=== PATIENT | male | born 1945 | race Caucasian/White ===

== ENCOUNTER 2018-05-30 15:45 | Emergency (ER) | payer MEDICARE, MEDICAID ==
[2018-05-30] MEDS ORDERED: Sodium Chloride 0.9% 1,000 ML IV ONE (16:24)
[2018-05-30] MEDS ORDERED: Ondansetron 4 MG/2 ML SDV IVPUSH ONE (16:24)
--- NOTE | 2018-05-30 16:32 | EDM.PDOC ---
ED HPI GENERAL MEDICAL PROBLEM - General Chief Complaint: Abdominal Pain Stated Complaint: VOMITING Time Seen by Provider: 05/30/18 16:24 Source of Information: Reports: Patient History Limitations: Reports: No Limitations - History of Present Illness INITIAL COMMENTS - FREE TEXT/NARRATIVE: This patient was strongly registered through the emergency room. I did not physically see this patient nor were they in the emergency room. - Related Data Allergies Allergy/AdvReac Type Severity Reaction Status Date / Time ampicillin Allergy Rash Verified 05/01/18 03:20 MDT codeine Allergy Cannot Verified 05/01/18 03:20 MDT Remember metronidazole [From Flagyl] Allergy Cannot Verified 05/01/18 03:20 MDT Remember propoxyphene Allergy Cannot Verified 05/01/18 03:20 MDT [From Darvocet-N] Remember Sulfa (Sulfonamide Allergy Rash Verified 05/01/18 03:20 MDT Antibiotics) sulfamethoxazole Allergy Cannot Verified 05/01/18 03:20 MDT [From Bactrim] Remember trimethoprim [From Bactrim] Allergy Cannot Verified 05/01/18 03:20 MDT Remember dust Allergy Cardiac Uncoded 05/01/18 03:20 MDT Arrest feibutol Allergy Cannot Uncoded 05/01/18 03:20 MDT Remember Home Meds: Home Meds Acetaminophen 650 tab PO DAILY PRN 01/30/16 [History] Albuterol [Ventolin HFA] 2 puff INH BID 01/30/16 [History] Ascorbic Acid [C-1000] 1,000 mg PO DAILY 01/30/16 [History] Cholecalciferol (Vitamin D3) [Vitamin D3] 2,000 unit PO DAILY 01/30/16 [History] Docusate Sodium [Colace] 100 mg PO BID PRN 01/30/16 [History] Furosemide 80 mg PO BID 01/30/16 [History] Gabapentin [Neurontin] 300 mg PO BID 01/30/16 [History] Hydrocodone/Acetaminophen [Reno 5-325] 1 tab PO Q6H PRN 01/30/16 [History] Levothyroxine 112 mcg PO DAILY 01/30/16 [History] Lutein 20 mg PO DAILY 01/30/16 [History] Montelukast [Singulair] 10 mg PO BEDTIME 01/30/16 [History] Polyethylene Glycol 3350 [MiraLAX] 1 packet PO DAILY 01/30/16 [History] Potassium Chloride 40 tab PO TID 01/30/16 [History] Simvastatin [Zocor] 20 mg PO BEDTIME 01/30/16 [History] Venlafaxine [Effexor XR] 225 mg PO DAILY 01/30/16 [History] metFORMIN [Glucophage] 500 mg PO BID 01/30/16 [History] Fluticasone Propionate [Flonase] 1 spray NASBOTH BEDTIME 01/31/16 [History] Benzocaine [Orabase-B 20% Dental Paste] 1 mg MUCMEM QID PRN 07/16/17 [History] Liraglutide [Victoza 3-Marco A] 1.2 mg SQ BEDTIME 07/16/17 [History] Lisinopril 10 mg PO DAILY 07/16/17 [History] Melatonin 4 mg PO BEDTIME 07/16/17 [History] Saliva Substitution Combo No.9 [Biotene] 3 ml PO QID PRN 07/16/17 [History] Spironolactone [Aldactone] 12.5 mg PO DAILY 07/16/17 [History] Albuterol [Ventolin HFA] 2 puff INH QID PRN 05/01/18 [History] Aspirin 81 mg PO DAILY 05/01/18 [History] Carboxymethylcellulose Sodium [Refresh Tears] 1 drop EYEBOTH BID PRN 05/01/18 [ History] Cyanocobalamin (Vitamin B-12) [B-12] 1,000 mcg PO DAILY 05/01/18 [History] Vit with Ca/FA/Iron [ Plus Iron] 1 tab PO DAILY 05/01/18 [ History] Warfarin Sodium [Coumadin] 7.5 mg PO SUTUWETHSA 05/01/18 [History] Warfarin [Coumadin] 10 mg PO MOFR 05/01/18 [History] Past Medical History HEENT History: Reports: Hard of Hearing Other HEENT History: acoustic neuroma Cardiovascular History: Reports: Heart Failure, High Cholesterol, Hypertension Other Cardiovascular History: lower extremity edema Respiratory History: Reports: Asthma, Sleep Apnea Other Respiratory History: dypsnea, orthopnea, wheezing, chronic cough Gastrointestinal History: Reports: Chronic Constipation, Colon Polyp Other Gastrointestinal History: colon polyps Genitourinary History: Reports: Chronic Renal Insuffiency Other Genitourinary History: Hx of CKD [employer] History: Reports: Other [employer] History: breast cancer, lumpectomy, ovarian cystectomy Musculoskeletal History: Reports: Back Pain, Chronic (Spinal stenosis) Other Musculoskeletal History: muscle weakness, spinal stenosis Neurological History: Reports: CVA, Seizure Other Neuro History: stroke intra operatively, 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, acoustic neuroma, brain surgery x 2 Psychiatric History: Reports: Anxiety, Depression, Other (See Below) (Insomnia) Other Psychiatric History: insomnia Endocrine/Metabolic History: Reports: Diabetes, Type II, Hypothyroidism, Obesity /BMI 30+ Hematologic History: Reports: Anemia Oncologic (Cancer) History: Reports: Breast - Infectious Disease History Infectious Disease History: Reports: MRSA - Past Surgical History Head Surgeries/Procedures: Reports: Craniotomy HEENT Surgical History: Reports: Cataract Surgery, Tonsillectomy, Other (See Below) (Excision of acoustic neuroma) GI Surgical History: Reports: Appendectomy, Cholecystectomy Female Surgical History: Reports: Cystectomy Neurological Surgical History: Reports: C-Spine, Spinal Fusion Oncologic Surgical History: Reports: Lumpectomy Social & Family History - Family History Cardiac: Reports: Heart Failure, [place] Endocrine/Metabolic: Reports: Diabetes, type II Oncologic: Reports: Lung, Pancreatic, Prostate, Skin - Caffeine Use Caffeine Use: Reports: None Other Caffeine Use: 1 daily - Living Situation & Occupation Living situation: Reports: Single, Extended Care Facility ([facility] Occupation: Disabled ED ROS GENERAL - Review of Systems Review Of Systems: ROS reveals no pertinent complaints other than HPI. ED EXAM, GI/ABD - Physical Exam Exam: See Below (NOT SEEN IN ER) Departure - Departure Time of Disposition: 16:41 Disposition: Left Without Being Seen 07 Clinical Impression: Eloped from emergency department - Discharge Information Referrals: PCP,Unknown [Primary Care Provider] - Forms: ED Department Discharge
== END 2018-05-30 16:41 | disposition left against medical advice (07) ==
LOC: MW.ED 15:45
DX: Z53.21 Procedure and treatment not carried out due to patient leaving prior to being seen by health care provider (principal); I13.10 Hypertensive heart and chronic kidney disease without heart failure, with stage 1 through stage 4 chronic kidney disease, or unspecified chronic kidney disease; E11.22 Type 2 diabetes mellitus with diabetic chronic kidney disease; N18.9 Chronic kidney disease, unspecified; I50.9 Heart failure, unspecified; F41.9 Anxiety disorder, unspecified; F32.9 Major depressive disorder, single episode, unspecified; Z79.82 Long term (current) use of aspirin; Z79.899 Other long term (current) drug therapy; Z79.84 Long term (current) use of oral hypoglycemic drugs; Z88.1 Allergy status to other antibiotic agents; Z88.8 Allergy status to other drugs, medicaments and biological substances; Z91.09 Other allergy status, other than to drugs and biological substances; Z88.2 Allergy status to sulfonamides